=== PATIENT | male | born 1985 | race Caucasian/White ===

== ENCOUNTER 2018-04-26 05:43 | Inpatient (IN) ==
[2018-04-26] MEDS ORDERED: diphenhydrAMINE 50 MG/1 ML VIAL IM PRN (06:25)
[2018-04-26] MEDS ORDERED: LORazepam 2 MG/1 ML VIAL IM PRN (06:25)
[2018-04-26] MEDS ORDERED: HALOPERIDOL 5 MG/ML AMP IM PRN (06:25)
[2018-04-26] MEDS ORDERED: SODIUM CHLORIDE 0.9% 1,000 ML IV STA ×2 (06:25→09:49)
[2018-04-26 06:33] LABS: Basophils # 0.1 10*3/uL (0.0-0.2); Basophils % 0.4 % (0.0-0.8); Eosinophils % 0.1 % (0.00-10.9); Hematocrit 50.9 VOL% (42.0-52.0); Hemoglobin 17.7 GM/DL (14.0-18.0); Immature Granulocytes % 0.4 %; Immature Granulocytes Absolute 0.06 #; Lymphocytes # 1.5 10*3/uL (1.4-4.0); Mean Corpuscular HGB Conc 34.8 GM/DL (32-36); Mean Corpuscular Hemoglobin 31 PG (27-34); Mean Corpuscular Volume 89.9 FL (87-102); Mean Platelet Volume 10.3 FL (9.6-12.0); Monocytes # 1.2 10*3/uL (0.11-0.8); Monocytes % 8.1 % (1.7-12.7); Neutrophils # 11.8 10*3/uL (1.4-7.4); Platelet Count 315 T/CUMM (130-400); Red Blood Count 5.66 MC/CUMM (3.8-5.5); Red Cell Distribution Width 11.9 % (9.3-17.3); White Blood Count 14.6 T/CUMM (4-12)
[2018-04-26 06:55] LABS: Alanine Aminotransferase 21 U/L (16-61); Albumin 5.4 G/DL (3.4-5.0); Alkaline Phosphatase 93 U/L (45-117); Aspartate Amino Transferase 14 U/L (0-37); Blood Urea Nitrogen 15 MG/DL (7-18); Calcium 10.2 MG/DL (8.5-10.1); Glucose 114 MG/DL (74-106); Osmolality,Calculated 291.6 MOS/KG (273-304); Potassium 4.3 MMOL/L (3.5-5.1); Sodium 146 MMOL/L (136-145); Total Protein 9.4 G/DL (6.4-8.3)
[2018-04-26 07:17] LABS: Ammonia 222 UMOL/L (11-32)
[2018-04-26 07:31] LABS: Barbiturates Screen,Urine Negative (Negative); Benzodiazepines Screen,Urine Negative (Negative); Cannabinoid Screen,Urine Positive (Negative); Opiate Screen,Urine Negative (Negative); Phencyclidine Screen,Urine Negative (Negative)
[2018-04-26] MEDS ORDERED: ALBUTEROL 2.5 MG/3 ML NEB RESP TX PRN (12:07)
[2018-04-26] MEDS ORDERED: NICOTINE 21 MG/24 HR PATCH TRANSDERM PRN (12:07)
[2018-04-26] MEDS ORDERED: ACETAMINOPHEN 325 MG TABLET PO PRN (12:07)
[2018-04-26] MEDS ORDERED: LACTULOSE 20 GM/30 ML UDCUP PO STA (12:10)
[2018-04-26] MEDS: SODIUM CHLORIDE 0.9% 1,000 ML IV SCH ×2 (14:45→23:50)
[2018-04-26 17:39] LABS: INR 1.1
[2018-04-26] MEDS: LACTULOSE 20 GM/30 ML UDCUP PO SCH (18:43)
[2018-04-27] MEDS: LACTULOSE 20 GM/30 ML UDCUP PO SCH ×4 (03:21→20:39)
[2018-04-27 05:41] LABS: Basophils % 0.3 % (0.0-0.8); Eosinophils # 0.1 10*3/uL (0.0-0.87); Eosinophils % 0.7 % (0.00-10.9); Hematocrit 38.2 VOL% (42.0-52.0); Hemoglobin 13.2 GM/DL (14.0-18.0); Immature Granulocytes % 0.3 %; Immature Granulocytes Absolute 0.03 #; Lymphocytes # 2.5 10*3/uL (1.4-4.0); Lymphocytes % 21.7 % (21.2-54.2); Mean Corpuscular HGB Conc 34.6 GM/DL (32-36); Mean Corpuscular Hemoglobin 32 PG (27-34); Mean Corpuscular Volume 91.2 FL (87-102); Mean Platelet Volume 10.3 FL (9.6-12.0); Monocytes # 1.1 10*3/uL (0.11-0.8); Monocytes % 9.4 % (1.7-12.7); Neutrophils # 7.8 10*3/uL (1.4-7.4); Neutrophils % 67.6 % (38.7-73.9); Platelet Count 208 T/CUMM (130-400); Red Blood Count 4.19 MC/CUMM (3.8-5.5); White Blood Count 11.5 T/CUMM (4-12)
[2018-04-27] MEDS: SODIUM CHLORIDE 0.9% 1,000 ML IV SCH ×2 (06:01→14:16)
[2018-04-27 06:02] LABS: Albumin 3.3 G/DL (3.4-5.0); Calcium 8.2 MG/DL (8.5-10.1); Osmolality,Calculated 275.4 MOS/KG (273-304); Potassium 3.7 MMOL/L (3.5-5.1); Total Protein 5.8 G/DL (6.4-8.3)
[2018-04-27] MEDS: PANTOPRAZOLE 40 MG TABLET PO SCH (11:44)
[2018-04-27] MEDS ORDERED: diphenhydrAMINE 50 MG/1 ML VIAL IV ONE (11:52)
[2018-04-27] MEDS ORDERED: HALOPERIDOL 5 MG/ML AMP IV ONE (11:52)
[2018-04-27] MEDS ORDERED: HALOPERIDOL 5 MG/ML AMP IM PRN (11:53)
[2018-04-27] MEDS: LORazepam 2 MG/1 ML VIAL IV PRN (11:59)
[2018-04-28] MEDS: SODIUM CHLORIDE 0.9% 1,000 ML IV SCH ×4 (00:25→15:34)
[2018-04-28] MEDS: LACTULOSE 20 GM/30 ML UDCUP PO SCH ×4 (00:25→21:32)
[2018-04-28] MEDS: PANTOPRAZOLE 40 MG TABLET PO SCH (08:52)
[2018-04-28] MEDS: LORazepam 2 MG/1 ML VIAL IV PRN (21:32)
[2018-04-29] MEDS: SODIUM CHLORIDE 0.9% 1,000 ML IV SCH ×2 (00:01→08:25)
[2018-04-29 04:23] LABS: Basophils % 0.3 % (0.0-0.8); Eosinophils # 0.1 10*3/uL (0.0-0.87); Eosinophils % 2.2 % (0.00-10.9); Hematocrit 30.8 VOL% (42.0-52.0); Hemoglobin 10.9 GM/DL (14.0-18.0); Immature Granulocytes % 0.2 %; Immature Granulocytes Absolute 0.01 #; Lymphocytes # 2.8 10*3/uL (1.4-4.0); Lymphocytes % 43.7 % (21.2-54.2); Mean Corpuscular HGB Conc 35.4 GM/DL (32-36); Mean Corpuscular Hemoglobin 32 PG (27-34); Mean Corpuscular Volume 89.5 FL (87-102); Mean Platelet Volume 11.2 FL (9.6-12.0); Monocytes # 0.6 10*3/uL (0.11-0.8); Monocytes % 9.6 % (1.7-12.7); Neutrophils # 2.9 10*3/uL (1.4-7.4); Platelet Count 200 T/CUMM (130-400); Red Blood Count 3.44 MC/CUMM (3.8-5.5); Red Cell Distribution Width 11.8 % (9.3-17.3); White Blood Count 6.5 T/CUMM (4-12)
[2018-04-29 04:39] LABS: Calcium 7.8 MG/DL (8.5-10.1); Osmolality,Calculated 282.8 MOS/KG (273-304); Potassium 3.4 MMOL/L (3.5-5.1)
[2018-04-29 05:08] VITALS: BP 91/45
[2018-04-29] MEDS: LACTULOSE 20 GM/30 ML UDCUP PO SCH (08:25)
[2018-04-29] MEDS: PANTOPRAZOLE 40 MG TABLET PO SCH (08:25)
[2018-04-29] MEDS ORDERED: POTASSIUM CHLORIDE 20 MEQ TABLET PO ONE (09:07)
== END 2018-04-29 13:15 | disposition left against medical advice (07) | DRG 894 ==
LOC: EDBD → EDUNIT# → N.ED 05:43 → N.EDINP 12:07 → SUATTDRO 12:07 → N.CC 04-27 05:27
PROVIDERS: ADMIT Internal Medicine; ATTEND Family Medicine